=== PATIENT | male | born 1980 | race Caucasian/White ===

== ENCOUNTER → 2025-06-02 14:29 | Outpatient (REF) | payer OTHER, SELFPAY | LOC: RAD 14:29 | PROVIDERS: ATTENDING PHYSICIAN Student in an Organized Health Care Education/Training Program; FAMILY PHYSICIAN Family Medicine | DX: M25.551 Pain in right hip (principal) | CPT/HCPCS: 73522 ==

== ENCOUNTER → 2025-06-03 09:58 | Outpatient (REF) | payer OTHER, SELFPAY | LOC: MRI 3T 09:58 | PROVIDERS: ATTENDING PHYSICIAN Student in an Organized Health Care Education/Training Program; FAMILY PHYSICIAN Family Medicine | DX: K76.9 Liver disease, unspecified (principal) | CPT/HCPCS: 74183; A9575 ==

== ENCOUNTER 2025-08-04 06:14 | Day surgery (SDC) | payer OTHER, SELFPAY | END 2025-08-04 10:50 | disposition home or self-care (01) | LOC: GI 06:14 | PROVIDERS: ATTENDING PHYSICIAN Internal Medicine Gastroenterology; FAMILY PHYSICIAN Family Medicine | DX: R93.3 Abnormal findings on diagnostic imaging of other parts of digestive tract (principal); K57.30 Diverticulosis of large intestine without perforation or abscess without bleeding; K64.8 Other hemorrhoids; D12.0 Benign neoplasm of cecum; D12.3 Benign neoplasm of transverse colon; D12.4 Benign neoplasm of descending colon; D12.8 Benign neoplasm of rectum; K63.5 Polyp of colon | CPT/HCPCS: 45385; 45380; 88305 ==